=== PATIENT | female | born 1970 | race Caucasian/White ===

== ENCOUNTER 2016-12-09 05:49 | Emergency (ER) | payer BC, OTHER ==
[~2016-12-09] VITALS: Ht 167.6 cm; Wt 101.6 kg
[~2016-12-09 05:49] MED LIST: FLUO40CA8 PO; MOXI400T; PRO20 PO; TOP25 PO; [UNRECOGNIZED DRUG - CODE] PO
[2016-12-09 05:55] VITALS: BP 154/73; PULSE 89; RESP 17; TEMP 97.9; O2SAT 98
--- NOTE | 2016-12-09 05:55 | NUR ---
Patient to ER bed 7 to gown for evaluation. Side rails up. Report given to SRAVAN Hagan
--- NOTE | 2016-12-09 06:00 | NUR ---
ER Dr. Malave at bedside examining patient.
--- NOTE | 2016-12-09 06:00 | NUR ---
Pt states that she has been having L sided sharp abd pain 04/28 that has lasted 11 hours. Tender to touch. Pt denies problems with BM or dysuria. Denies vomitting, but has nausea. Will continue to monitor. No other injuries or complaints mentioned/noted. Addendum: 12/09/16 at 0711 by BK No relief from ibuprofen OTC.
[2016-12-09] MEDS ORDERED: NACL 0.9% 1,000 ML IV ONE (06:09)
[2016-12-09] MEDS ORDERED: KETOROLAC TROMETHAMINE 30 MG VIAL IVP ONE (06:15)
[2016-12-09] MEDS ORDERED: ONDANSETRON HCL 4 MG/2 ML VIAL IVP ONE (06:15)
[2016-12-09 06:50] LABS: BASOPHILS # (AUTO) 0.3 K/uL (0.0-0.2); BASOPHILS % (AUTO) 2.9 % (0.0-2.0); BILIRUBIN,URINE NEGATIVE (NEGATIVE); BLOOD, URINE 1+ (NEGATIVE); CLARITY/URINE CLEAR (CLEAR); COLOR,URINE YELLOW (YELLOW); EOSINOPHILS # (AUTO) 0.1 K/uL (0.0-0.4); EOSINOPHILS % (AUTO) 0.6 % (0.0-4.0); GLUCOSE,URINE NEGATIVE (NEGATIVE); HEMATOCRIT 39.1 % (36-48); KETONES,URINE NEGATIVE (NEGATIVE); LEUKOCYTE ESTERASE ,URINE NEGATIVE (NEGATIVE); LYMPHOCYTES # (AUTO) 3.2 K/uL (1.0-5.5); LYMPHOCYTES % (AUTO) 30.3 % (20.5-51.5); MEAN CORPUSCULAR HEMOGLOBIN 29 pg (27-31); MEAN CORPUSCULAR HGB CONC 33 % (32-36); MEAN CORPUSCULAR VOLUME 88 fL (79.0-98.0); MONOCYTES # (AUTO) 0.8 K/uL (0.0-1.0); MONOCYTES % (AUTO) 7.9 % (1.7-9.3); NEUTROPHILS # (AUTO) 6.1 K/uL (1.8-7.7); NEUTROPHILS % (AUTO) 58.3 % (40.0-70.0); NITRITE, URINE NEGATIVE (NEGATIVE); PLATELET COUNT (AUTO) 287 K/uL (130-430); PROTEIN URINE NEGATIVE (NEGATIVE); RED BLOOD CELL COUNT(AUTO) 4.43 MIL/uL (4.2-6.2); RED CELL DISTRIBUTION WIDTH 12.9 % (9.0-15.0); UROBILINOGEN,URINE 0.2 (0.2-1.0); WHITE BLOOD COUNT (AUTO) 10.5 K/uL (4.8-10.8)
[2016-12-09 06:57] LABS: CALCIUM 8.5 mg/dL (8.4-11.0); CREATININE 0.66 mg/dL (0.55-1.30); POTASSIUM 3.5 mmol/L (3.5-5.1)
[2016-12-09] MEDS ORDERED: fentaNYL CITRATE/PF 100 MCG/2 ML AMP IVP ONE (07:00)
[2016-12-09 07:02] LABS: ALBUMIN 3.5 g/dL (3.4-4.8); TOTAL BILIRUBIN 0.4 mg/dL (0.0-1.0); TOTAL PROTEIN, SERUM 7.7 g/dL (6.4-8.3)
[2016-12-09 07:08] LABS: BACTERIA,URINE FEW /HPF (None Seen); MUCUS,URINE 1+ /LPF (None Seen); RBC,URINE 0-3 /HPF (0-3); WBC,URINE 0-3 /HPF (0-3)
--- NOTE | 2016-12-09 07:10 | NUR ---
Care and report endorsed to Juana HINSON.
--- NOTE | 2016-12-09 07:30 | NUR ---
Patient resting in bed, stable condition.
[2016-12-09] MEDS ORDERED: MAG-AL HYDROX/SIMETH 30 ML UDC PO ONE (08:00)
[2016-12-09] MEDS ORDERED: BELLADONNA ALKALOIDS/PHENOBARB 5 ML UDC PO ONE (08:00)
[2016-12-09] MEDS ORDERED: LIDOCAINE VISCOUS 2%, 15 ML UDC MM ONE (08:00)
--- NOTE | 2016-12-09 08:48 | NUR ---
Patient given written and verbal discharge instructions and verbalizes understanding. ER MD discussed with patient the results and treatment provided. Patient in stable condition. ID arm band removed. IV catheter removed intact and dressing applied, no active bleeding. Rx of Omeprezole given. Patient educated on pain management and to follow up with PMD tomorrow. Pain Scale 0/10. Opportunity for questions provided and answered. Addendum: 12/09/16 at 0858 by MARIELA Pain Scale 1/10.
[2016-12-09 08:55] VITALS: BP 135/73; PULSE 82; RESP 16; TEMP 97.6; O2SAT 99
== END 2016-12-09 08:55 | disposition home or self-care (01) ==
LOC: SED 05:49
DX: K29.70 Gastritis, unspecified, without bleeding (principal); Z88.0 Allergy status to penicillin; Z88.1 Allergy status to other antibiotic agents; Z88.5 Allergy status to narcotic agent; Z90.49 Acquired absence of other specified parts of digestive tract; Z98.890 Other specified postprocedural states
CPT/HCPCS: 36415; 74176; 80053; 81000; 85025; 93005; 96361; 96374; 96375; 99285; J1885; J2001; J2405; J3010; J7030

== ENCOUNTER 2017-02-24 16:46 | Emergency (ER) | payer BC, OTHER ==
[~2017-02-24] VITALS: Ht 167.6 cm; Wt 103.4 kg
[~2017-02-24 16:46] MED LIST changes: -FLUO40CA8 PO; -MOXI400T; -[UNRECOGNIZED DRUG - CODE] PO
[2017-02-24 16:56] VITALS: BP_SYST 160
[2017-02-24] MEDS ORDERED: NACL 0.9% 1,000 ML IV ONE (17:15)
[2017-02-24] MEDS ORDERED: KETOROLAC TROMETHAMINE 30 MG VIAL IVP ONE (17:15)
[2017-02-24] MEDS ORDERED: DIPHENHYDRAMINE INJ 50 MG/ML VIAL IVP ONE (17:15)
[2017-02-24] MEDS ORDERED: PROCHLORPERAZINE EDISYLATE 10 MG/2 ML VIAL IVP ONE (17:15)
[2017-02-24 17:32] LABS: BASOPHILS # (AUTO) 0.1 K/uL (0.0-0.2); EOSINOPHILS # (AUTO) 0.1 K/uL (0.0-0.4); EOSINOPHILS % (AUTO) 0.8 % (0.0-4.0); HEMATOCRIT 41.6 % (36-48); HEMOGLOBIN 13.9 g/dL (12.0-16.0); LYMPHOCYTES # (AUTO) 4.3 K/uL (1.0-5.5); MEAN CORPUSCULAR HEMOGLOBIN 30 pg (27-31); MEAN CORPUSCULAR HGB CONC 33 % (32-36); MEAN CORPUSCULAR VOLUME 89 fL (79.0-98.0); MONOCYTES % (AUTO) 7.1 % (1.7-9.3); NEUTROPHILS # (AUTO) 8.1 K/uL (1.8-7.7); NEUTROPHILS % (AUTO) 59.1 % (40.0-70.0); PLATELET COUNT (AUTO) 294 K/uL (130-430); RED BLOOD CELL COUNT(AUTO) 4.67 MIL/uL (4.2-6.2); RED CELL DISTRIBUTION WIDTH 12.6 % (9.0-15.0); WHITE BLOOD COUNT (AUTO) 13.6 K/uL (4.8-10.8)
[2017-02-24 17:33] LABS: BILIRUBIN,URINE NEGATIVE (NEGATIVE); CLARITY/URINE CLEAR (CLEAR); COLOR,URINE YELLOW (YELLOW); GLUCOSE,URINE NEGATIVE (NEGATIVE); KETONES,URINE NEGATIVE (NEGATIVE); LEUKOCYTE ESTERASE ,URINE NEGATIVE (NEGATIVE); NITRITE, URINE NEGATIVE (NEGATIVE); PROTEIN URINE NEGATIVE (NEGATIVE); UROBILINOGEN,URINE 0.2 (0.2-1.0)
[2017-02-24 17:42] LABS: BLOOD, URINE TRACE (NEGATIVE)
[2017-02-24 17:46] LABS: BACTERIA,URINE FEW /HPF (None Seen); WBC,URINE 0-3 /HPF (0-3)
[2017-02-24 17:47] LABS: MUCUS,URINE None Seen /LPF (None Seen)
[2017-02-24 17:54] LABS: CALCIUM 9.1 mg/dL (8.4-11.0); CREATININE 0.87 mg/dL (0.55-1.30); POTASSIUM 3.6 mmol/L (3.5-5.1)
[2017-02-24 18:00] LABS: BARBITURATE, URINE NEGATIVE (NEG <=200); BENZODIAZEPINE, URINE NEGATIVE (NEG <=150); CANNABINOID, URINE NEGATIVE (NEG <=50); COCAINE, URINE NEGATIVE (NEG <=150); METHAMPHETAMINES SCREEN,URINE NEGATIVE (NEG <=500); OPIATE, URINE NEGATIVE (NEG <=100); PHENCYCLIDINE SCREEN,URINE NEGATIVE (NEG <=25); UR TRICYCLIC ANTIDEPRESSANTS NEGATIVE (NEG <=300); URINE AMPHETAMINE NEGATIVE (NEG <=500); URINE METHADONE NEGATIVE (NEG <=200); URINE OXYCODONE SCREEN NEGATIVE (NEG <=100); URINE PROPOXYPHENE SCREEN NEGATIVE (NEG <=300)
[2017-02-24 18:07] LABS: INR 0.9 (0.8-1.2)
[2017-02-24 19:45] VITALS: BP_SYST 152
== END 2017-02-24 19:45 | disposition home or self-care (01) ==
LOC: SED 16:46
DX: R51 Headache (principal); Z88.0 Allergy status to penicillin; Z88.1 Allergy status to other antibiotic agents; Z88.6 Allergy status to analgesic agent
CPT/HCPCS: 36415; 80048; 80307; 81000; 81025; 85025; 85610; 85730; 96361; 96374; 96375; 99284; J0780; J1200; J1885; J7030

== ENCOUNTER 2018-05-01 11:23 | Emergency (ER) | payer BC, OTHER ==
[~2018-05-01] VITALS: Ht 167.6 cm; Wt 97.5 kg
[~2018-05-01 11:23] MED LIST changes: +AMLO5TAB4 PO; +ESCI20TA PO; -PRO20 PO; +PRO40 PO; +RIZA10TA22 PO
[2018-05-01 11:24] VITALS: BP_SYST 154
[2018-05-01] MEDS ORDERED: ASPIRIN 81 MG TAB.CHEW PO ONE (11:45)
[2018-05-01] MEDS ORDERED: ALPRAZolam 0.25 MG TABLET PO ONE (11:45)
[2018-05-01] MEDS ORDERED: NITROGLYCERIN 1 INCH (GM) OINT. TP ONE (11:45)
[2018-05-01 12:29] LABS: BASOPHILS # (AUTO) 0.1 K/uL (0.0-0.2); BASOPHILS % (AUTO) 0.9 % (0.0-2.0); EOSINOPHILS # (AUTO) 0.1 K/uL (0.0-0.4); EOSINOPHILS % (AUTO) 1.1 % (0.0-4.0); HEMATOCRIT 40.8 % (36-48); HEMOGLOBIN 13.9 g/dL (12.0-16.0); LYMPHOCYTES # (AUTO) 3.2 K/uL (1.0-5.5); LYMPHOCYTES % (AUTO) 38.6 % (20.5-51.5); MEAN CORPUSCULAR HEMOGLOBIN 31 pg (27-31); MEAN CORPUSCULAR HGB CONC 34 % (32-36); MEAN CORPUSCULAR VOLUME 90 fL (79.0-98.0); MONOCYTES # (AUTO) 0.6 K/uL (0.0-1.0); MONOCYTES % (AUTO) 7.6 % (1.7-9.3); NEUTROPHILS # (AUTO) 4.3 K/uL (1.8-7.7); NEUTROPHILS % (AUTO) 51.8 % (40.0-70.0); PLATELET COUNT (AUTO) 304 K/uL (130-430); RED BLOOD CELL COUNT(AUTO) 4.55 MIL/uL (4.2-6.2); RED CELL DISTRIBUTION WIDTH 12.5 % (9.0-15.0); WHITE BLOOD COUNT (AUTO) 8.3 K/uL (4.8-10.8)
[2018-05-01 12:42] LABS: CALCIUM 8.8 mg/dL (8.4-11.0); CREATININE 0.67 mg/dL (0.55-1.30); POTASSIUM 3.7 mmol/L (3.5-5.1)
[2018-05-01 12:47] LABS: ALBUMIN 3.5 g/dL (3.4-4.8); TOTAL BILIRUBIN 0.3 mg/dL (0.0-1.0)
[2018-05-01 12:55] LABS: PROTHROMBIN TIME 9.9 SECS (9.5-12.5)
--- NOTE | 2018-05-01 14:27 | NUR ---
Patient to ER bed 7 to gown for evaluation. Side rails up.Report given to Carol HINSON.
--- NOTE | 2018-05-01 14:28 | NUR ---
Pt brought by family, A&Ox4, pt presents to ER with chest pressure with L facial numbness , VS WNL, respirations even and unlabored, cap refill <3, VS WNL, respirations even and unlabored, cap refill <3.pt speaking in full sentendes, no facial drop. will continue to monitor.
[2018-05-01 14:42] LABS: BILIRUBIN,URINE NEGATIVE (NEGATIVE); CLARITY/URINE CLEAR (CLEAR); COLOR,URINE YELLOW (YELLOW); GLUCOSE,URINE NEGATIVE (NEGATIVE); KETONES,URINE NEGATIVE (NEGATIVE); LEUKOCYTE ESTERASE ,URINE NEGATIVE (NEGATIVE); NITRITE, URINE NEGATIVE (NEGATIVE); PH,URINE 6.5 (5.0-8.0); PROTEIN URINE NEGATIVE (NEGATIVE); UROBILINOGEN,URINE 0.2 (0.2-1.0)
[2018-05-01] MEDS ORDERED: ASPIRIN 81 MG TAB.CHEW ONE (14:43)
[2018-05-01] MEDS ORDERED: NITROGLYCERIN 1 INCH (GM) OINT. ONE (14:44)
[2018-05-01] MEDS ORDERED: ALPRAZolam 0.25 MG TABLET ONE (14:45)
--- NOTE | 2018-05-01 14:45 | NUR ---
Dr Thomas at bedside examining patient
[2018-05-01 14:48] LABS: BLOOD, URINE TRACE (NEGATIVE)
[2018-05-01 14:58] LABS: BACTERIA,URINE MODERATE /HPF (None Seen); RBC,URINE 0-3 /HPF (0-3); WBC,URINE 0-3 /HPF (0-3)
[2018-05-01 15:40] VITALS: BP_SYST 143
--- NOTE | 2018-05-01 15:40 | NUR ---
Patient given written and verbal discharge instructions and verbalizes understanding. ER MD discussed with patient the results and treatment provided. Patient in stable condition. ID arm band removed. No Rx given. Patient educated on pain management and to follow up with PMD. Pain Scale 0/10. Opportunity for questions provided and answered. Medication side effect fact sheet provided.
== END 2018-05-01 15:40 | disposition home or self-care (01) ==
LOC: SED 11:23
DX: R20.2 Paresthesia of skin (principal); R07.89 Other chest pain; I10 Essential (primary) hypertension; M79.7 Fibromyalgia; G47.30 Sleep apnea, unspecified; Z79.899 Other long term (current) drug therapy; Z88.6 Allergy status to analgesic agent; Z88.1 Allergy status to other antibiotic agents; Z88.0 Allergy status to penicillin; Z88.8 Allergy status to other drugs, medicaments and biological substances
CPT/HCPCS: 36415; 71045; 80053; 81000-TC; 83880; 84484; 85025; 85610-TC; 93005; 99285

== ENCOUNTER 2018-08-21 03:20 | Emergency (ER) | payer BC, OTHER ==
[~2018-08-21] VITALS: Ht 167.6 cm; Wt 99.3 kg
[2018-08-21 03:27] VITALS: BP_SYST 106
[2018-08-21] MEDS ORDERED: MAG HYDROX/AL HYDROX/SIMETH 30 ML, LIDOCAINE VISCOUS 2% 15ML (PO) 10 ML, BELLADONNA ALK... PO ONE ×3 (03:30)
[2018-08-21] MEDS ORDERED: ONDANSETRON HCL 4 MG/2 ML VIAL IVP ONE (03:30)
[2018-08-21] MEDS ORDERED: NACL 0.9% 1,000 ML IV ONE (03:30)
[2018-08-21 03:58] LABS: BASOPHILS # (AUTO) 0.1 K/uL (0.0-0.2); BASOPHILS % (AUTO) 0.6 % (0.0-2.0); EOSINOPHILS # (AUTO) 0.1 K/uL (0.0-0.4); EOSINOPHILS % (AUTO) 0.7 % (0.0-4.0); HEMATOCRIT 43.5 % (36-48); HEMOGLOBIN 14.2 g/dL (12.0-16.0); LYMPHOCYTES # (AUTO) 3.9 K/uL (1.0-5.5); LYMPHOCYTES % (AUTO) 25.7 % (20.5-51.5); MEAN CORPUSCULAR HEMOGLOBIN 30 pg (27-31); MEAN CORPUSCULAR HGB CONC 33 % (32-36); MEAN CORPUSCULAR VOLUME 91 fL (79.0-98.0); MONOCYTES # (AUTO) 0.9 K/uL (0.0-1.0); MONOCYTES % (AUTO) 6.2 % (1.7-9.3); NEUTROPHILS # (AUTO) 10.2 K/uL (1.8-7.7); NEUTROPHILS % (AUTO) 66.8 % (40.0-70.0); PLATELET COUNT (AUTO) 308 K/uL (130-430); RED BLOOD CELL COUNT(AUTO) 4.79 MIL/uL (4.2-6.2); RED CELL DISTRIBUTION WIDTH 12.5 % (9.0-15.0); WHITE BLOOD COUNT (AUTO) 15.2 K/uL (4.8-10.8)
[2018-08-21 04:12] LABS: CALCIUM 9.3 mg/dL (8.4-11.0); CREATININE 0.72 mg/dL (0.55-1.30); POTASSIUM 3.6 mmol/L (3.5-5.1)
[2018-08-21 04:18] LABS: ALBUMIN 3.5 g/dL (3.4-4.8); TOTAL BILIRUBIN 0.3 mg/dL (0.0-1.0)
[2018-08-21 04:30] VITALS: BP_SYST 106
== END 2018-08-21 04:30 | disposition home or self-care (01) ==
LOC: SED 03:20
DX: K29.70 Gastritis, unspecified, without bleeding (principal); M79.7 Fibromyalgia; I10 Essential (primary) hypertension; Z90.49 Acquired absence of other specified parts of digestive tract; Z90.710 Acquired absence of both cervix and uterus; Z88.0 Allergy status to penicillin; Z88.1 Allergy status to other antibiotic agents; Z88.6 Allergy status to analgesic agent; Z79.899 Other long term (current) drug therapy
CPT/HCPCS: 36415; 80053; 83690; 85025; 96361; 96374; 99283; J2001; J2405; J7030

== ENCOUNTER 2018-09-26 07:54 | Emergency (ER) | payer BC, OTHER ==
[~2018-09-26] VITALS: Ht 167.6 cm; Wt 98.9 kg
[2018-09-26 07:57] VITALS: BP_SYST 140
--- NOTE | 2018-09-26 08:00 | NUR ---
Arrived via BLS ambulance with compliant of left ankle pain to medial and lateral malleolus. Unable to bear weight or produce any AROM. Patient twisted ankle as she fell down a short flight of 2 stairs. S/C left elbow abrasion and pain to back of head, mild tenderness. Patient to ER bed 7 to gown for evaluation. Side rails up. Report given to Ronnie HINSON.
--- NOTE | 2018-09-26 08:05 | NUR ---
ER Dr. Winter at bedside examining patient.
[2018-09-26] MEDS ORDERED: fentaNYL CITRATE/PF 100 MCG/2 ML AMP IM ONE (08:15)
--- NOTE | 2018-09-26 09:00 | NUR ---
Pt verbalizes improvement in pain. Family member at bedside. No needs verbalized at this time.
[2018-09-26 09:40] VITALS: BP_SYST 135
--- NOTE | 2018-09-26 09:40 | NUR ---
Patient given written and verbal discharge instructions and verbalizes understanding. ER MD discussed with patient the results and treatment provided. Patient in stable condition. ID arm band removed. Rx of [place] and Zofran given. Patient educated on pain management and to follow up with PMD. Pain Scale 3/10. Opportunity for questions provided and answered. Medication side effect fact sheet provided.
== END 2018-09-26 09:40 | disposition home or self-care (01) ==
LOC: SED 07:54
DX: S82.432A Displaced oblique fracture of shaft of left fibula, initial encounter for closed fracture (principal); S82.302A Unspecified fracture of lower end of left tibia, initial encounter for closed fracture; M79.7 Fibromyalgia; I10 Essential (primary) hypertension; Z88.0 Allergy status to penicillin; Z88.1 Allergy status to other antibiotic agents; Z88.6 Allergy status to analgesic agent; Z79.899 Other long term (current) drug therapy; W01.0XXA Fall on same level from slipping, tripping and stumbling without subsequent striking against object, initial encounter; Y93.89 Activity, other specified; Y92.89 Other specified places as the place of occurrence of the external cause; Y99.8 Other external cause status
CPT/HCPCS: 29515; 73610; 96372; 99283; J3010

== ENCOUNTER 2022-11-29 09:45 | Emergency (ER) | payer BC, OTHER ==
[~2022-11-29] VITALS: Ht 198.1 cm; Wt 100.2 kg
[2022-11-29 10:05] VITALS: BP_SYST 155
[2022-11-29 10:50] LABS: BASOPHILS # (AUTO) 0.1 K/uL (0.0-0.2); BASOPHILS % (AUTO) 0.8 % (0.0-2.0); EOSINOPHILS % (AUTO) 0.5 % (0.0-4.0); HEMATOCRIT 41.9 % (36-48); HEMOGLOBIN 14.1 g/dL (12.0-16.0); LYMPHOCYTES # (AUTO) 2.8 K/uL (1.0-5.5); LYMPHOCYTES % (AUTO) 29.3 % (20.5-51.5); MEAN CORPUSCULAR HEMOGLOBIN 30 pg (27-31); MEAN CORPUSCULAR HGB CONC 34 % (32-36); MEAN CORPUSCULAR VOLUME 90 fL (79.0-98.0); MONOCYTES # (AUTO) 0.5 K/uL (0.0-1.0); MONOCYTES % (AUTO) 5.3 % (1.7-9.3); NEUTROPHILS # (AUTO) 6.1 K/uL (1.8-7.7); NEUTROPHILS % (AUTO) 64.1 % (40.0-70.0); PLATELET COUNT (AUTO) 279 K/uL (130-430); RED BLOOD CELL COUNT(AUTO) 4.68 MIL/uL (4.2-6.2); RED CELL DISTRIBUTION WIDTH 13.5 % (9.0-15.0); WHITE BLOOD COUNT (AUTO) 9.5 K/uL (4.8-10.8)
[2022-11-29 11:02] LABS: ANION GAP 8 (5-15); CALCIUM 9.1 mg/dL (8.4-11.0); CHLORIDE 103 mmol/L (98-107); CREATININE 0.78 mg/dL (0.55-1.30); GLUCOSE 117 mg/dL (70-99); UREA NITROGEN, BLOOD 16 mg/dL (8-21)
[2022-11-29 11:04] LABS: GFR AFRICAN AMERICAN 100 mL/min (>90)
[2022-11-29 11:10] LABS: ALANINE AMINOTRANSFERASE 34 U/L (12-78); ALBUMIN 3.5 g/dL (3.4-4.8); ASPARTATE AMINOTRANSFERASE 20 U/L (10-37); TOTAL BILIRUBIN 0.4 mg/dL (0.0-1.0)
--- NOTE | 2022-11-29 11:24 | NUR ---
Placed in room 8 . Placed on bus driver/monitor, blood pressure machine and pulse oximeter. To gown for exam. Side rails up. Report given to Ashlie HINSON.
--- NOTE | 2022-11-29 11:30 | NUR ---
DR. BURNETT AT BEDSIDE TO ASSESS.
[2022-11-29] MEDS ORDERED: HYDROcodone/ACETAMIN 5-325 MG TAB (NORCO/ VICODIN) PO ONE (11:45)
[2022-11-29] MEDS ORDERED: IBUPROFEN 800 MG TABLET PO ONE (11:45)
[2022-11-29] MEDS ORDERED: ONDANSETRON 4 MG ODT TAB PO ONE (11:45)
--- NOTE | 2022-11-29 12:26 | NUR ---
SCHEDULED MEDS GIVEN AND TOLERATED WELL.
[2022-11-29] MEDS ORDERED: IBUP-1969 PO (12:48)
[2022-11-29] MEDS ORDERED: TRAM50TA2 PO (12:48)
[2022-11-29] MEDS ORDERED: OMEP20CA15 PO (12:48)
[2022-11-29] MEDS ORDERED: ONDA-8 TL (12:53)
--- NOTE | 2022-11-29 13:45 | NUR ---
DR. BURNETT AT BEDSIDE TO DISCUSS POC.
[2022-11-29 14:17] VITALS: BP_SYST 142
--- NOTE | 2022-11-29 14:26 | NUR ---
Patient given written and verbal discharge instructions and verbalizes understanding. ER MD discussed with patient the results and treatment provided. Patient in stable condition. ID arm band removed. Patient educated on pain management and to follow up with PMD. Pain Scale 0/10. Opportunity for questions provided and answered. Medication side effect fact sheet provided.
== END 2022-11-29 14:17 | disposition home or self-care (01) ==
LOC: SED 09:45
DX: R10.13 Epigastric pain (principal); R51.9 Headache, unspecified; R11.2 Nausea with vomiting, unspecified; R19.7 Diarrhea, unspecified; I10 Essential (primary) hypertension; Z88.0 Allergy status to penicillin; Z88.1 Allergy status to other antibiotic agents; Z88.5 Allergy status to narcotic agent; Z79.899 Other long term (current) drug therapy
CPT/HCPCS: 99285; 70450; 71045; 80053; 82550; 82962; 84703; 85025; 84484; 36415; 93005; 76376; 81025; 83605; Q0162

== ENCOUNTER 2023-06-15 06:49 | Emergency (ER) | payer BC ==
[~2023-06-15] VITALS: Ht 167.6 cm; Wt 106.1 kg
[~2023-06-15 06:49] MED LIST changes: +IBUP-1969 PO; +ONDA-8 TL; +TRAM50TA2 PO
[2023-06-15 06:52] VITALS: RESP 16; TEMP 97.7
[2023-06-15] MEDS ORDERED: HYDROcodone/ACETAMIN 5-325 MG TAB (NORCO/ VICODIN) PO ONE (07:00)
[2023-06-15] MEDS ORDERED: ASPIRIN 325 MG TABLET PO ONE (07:00)
[2023-06-15 07:33] LABS: BASOPHILS # (AUTO) 0.1 K/uL (0.0-0.2); BASOPHILS % (AUTO) 1.3 % (0.0-2.0); EOSINOPHILS # (AUTO) 0.1 K/uL (0.0-0.4); EOSINOPHILS % (AUTO) 1.2 % (0.0-4.0); HEMATOCRIT 42.5 % (36-48); HEMOGLOBIN 13.9 g/dL (12.0-16.0); LYMPHOCYTES % (AUTO) 39.1 % (20.5-51.5); MEAN CORPUSCULAR HEMOGLOBIN 29 pg (27-31); MEAN CORPUSCULAR HGB CONC 33 % (32-36); MEAN CORPUSCULAR VOLUME 90 fL (79.0-98.0); MONOCYTES # (AUTO) 0.6 K/uL (0.0-1.0); MONOCYTES % (AUTO) 7.1 % (1.7-9.3); NEUTROPHILS % (AUTO) 51.3 % (40.0-70.0); PLATELET COUNT (AUTO) 304 K/uL (130-430); RED BLOOD CELL COUNT(AUTO) 4.73 MIL/uL (4.2-6.2); RED CELL DISTRIBUTION WIDTH 13.7 % (9.0-15.0); WHITE BLOOD COUNT (AUTO) 7.8 K/uL (4.8-10.8)
[2023-06-15 08:02] LABS: ANION GAP 9 (5-15); CARBON DIOXIDE 28 mmol/L (23-29); CHLORIDE 103 mmol/L (98-107); CREATININE 0.68 mg/dL (0.55-1.30); GFR AFRICAN AMERICAN 117 mL/min (>90); GLUCOSE 117 mg/dL (74-106); POTASSIUM 3.9 mmol/L (3.5-5.1); SODIUM SERUM 140 mmol/L (136-145); UREA NITROGEN, BLOOD 13 mg/dL (8-21)
[2023-06-15 08:05] LABS: GFR NON AFRICAN-AMERICAN 97 mL/min (>90)
[2023-06-15 08:08] LABS: ERYTHROCYTE SEDIMENTATION RATE 20 MM/HR (0-20)
[2023-06-15] MEDS ORDERED: BUTA1CAP48 PO (10:29)
[2023-06-15 11:18] VITALS: BP_SYST 158; PULSE 83; RESP 16; TEMP 97.7; O2SAT 96
== END 2023-06-15 11:19 | disposition home or self-care (01) ==
LOC: SED 06:49 → EEVIPCON 06:49 → SED 11:19
DX: G43.909 Migraine, unspecified, not intractable, without status migrainosus (principal); R07.9 Chest pain, unspecified; R11.0 Nausea; I10 Essential (primary) hypertension; Z88.0 Allergy status to penicillin; Z88.1 Allergy status to other antibiotic agents; Z88.5 Allergy status to narcotic agent; Z79.899 Other long term (current) drug therapy
CPT/HCPCS: 36415; 80048; 84484; 85025; 85379; 85651-TC; 93005; 99284

== ENCOUNTER 2024-04-02 17:10 | Emergency (ER) | payer BC ==
[~2024-04-02] VITALS: Ht 162.6 cm; Wt 90.7 kg
[~2024-04-02 17:10] MED LIST changes: +BUTA1CAP48 PO
[2024-04-02 17:24] VITALS: BP_SYST 169; PULSE 100; RESP 17; TEMP 98.7; O2SAT 99
[2024-04-02 18:05] LABS: BASOPHILS # (AUTO) 0.1 K/uL (0.0-0.2); EOSINOPHILS # (AUTO) 0.1 K/uL (0.0-0.4); EOSINOPHILS % (AUTO) 0.8 % (0.0-4.0); HEMOGLOBIN 13.9 g/dL (12.0-16.0); LYMPHOCYTES # (AUTO) 3.4 K/uL (1.0-5.5); LYMPHOCYTES % (AUTO) 30.3 % (20.5-51.5); MEAN CORPUSCULAR HEMOGLOBIN 30 pg (27-31); MEAN CORPUSCULAR HGB CONC 34 % (32-36); MEAN CORPUSCULAR VOLUME 89 fL (79.0-98.0); MONOCYTES # (AUTO) 1.1 K/uL (0.0-1.0); NEUTROPHILS # (AUTO) 6.4 K/uL (1.8-7.7); NEUTROPHILS % (AUTO) 57.9 % (40.0-70.0); PLATELET COUNT (AUTO) 326 K/uL (130-430); RED BLOOD CELL COUNT(AUTO) 4.61 MIL/uL (4.2-6.2); WHITE BLOOD COUNT (AUTO) 11.1 K/uL (4.8-10.8)
[2024-04-02 18:19] LABS: ANION GAP 8 (5-15); CALCIUM 9.8 mg/dL (8.4-11.0); CARBON DIOXIDE 31 mmol/L (23-29); CHLORIDE 102 mmol/L (98-107); GFR AFRICAN AMERICAN 113 mL/min (>90); GFR NON AFRICAN-AMERICAN 93 mL/min (>90); GLUCOSE 100 mg/dL (74-106); POTASSIUM 4.1 mmol/L (3.5-5.1); SODIUM SERUM 141 mmol/L (136-145); UREA NITROGEN, BLOOD 14 mg/dL (8-21)
[2024-04-02] MEDS: ASPIRIN 325 MG TABLET (ECOTRIN) PO ONE (18:53)
[2024-04-02 21:11] VITALS: BP_SYST 169; PULSE 93; RESP 18; TEMP 98; O2SAT 99
== END 2024-04-02 21:09 | disposition home or self-care (01) ==
LOC: SED 17:10
DX: R07.89 Other chest pain (principal); I10 Essential (primary) hypertension; R00.2 Palpitations; R20.2 Paresthesia of skin; M79.7 Fibromyalgia; Z90.49 Acquired absence of other specified parts of digestive tract; Z90.710 Acquired absence of both cervix and uterus; Z88.0 Allergy status to penicillin; Z88.1 Allergy status to other antibiotic agents; Z88.5 Allergy status to narcotic agent; Z79.2 Long term (current) use of antibiotics; Z79.899 Other long term (current) drug therapy
CPT/HCPCS: 36415; 71045; 80048; 83880; 84484; 85025; 93005; 99285